=== PATIENT | male | born 1940 | race Caucasian/White ===

== ENCOUNTER 2020-08-23 17:50 | Inpatient (IN) | payer MEDICARE, BC, MEDICAID ==
[~2020-08-23] VITALS: Ht 185.4 cm; Wt 93.3 kg
[~2020-08-23 17:50] MED LIST: ALPR0.254 PO; ASPI-630 PO; ATORVASTATIN CA80 MG PO; CARV6.2511 PO; FURO20TA3 PO; LOSA25TA54 PO; RIVA20TA2 PO; SPIR25TA5 PO; TERA1CAP3 PO; TRAM50TA PO
[2020-08-23] MEDS ORDERED: DEXAMETHASONE SOD PHOS 20 MG/5 ML VIAL. IV ONE (18:15)
--- NOTE | 2020-08-23 18:45 | ED.ADGEN ---
Past Medical History Past Medical History: CAD, Cancer, CHF, High Cholesterol, Hypertension, [place], Other Additional Past Medical Histor: colon CA; sleep apnea Past Surgical History: Colectomy, Coronary Bypass Surgery, Pacemaker, Other Additional Past Surgical Histo: AICD; angioplasty; balloon pump Smoking Status: Former Smoker Alcohol Use: None Drug Use: None General Adult EDM: Chief Complaint: SHORTNESS OF BREATH HPI: HPI: Patient is a 79 year old male coming into nursing facility for hypoxia. On EMS arrival he was satting 77%. Placed on nonrebreather and sats improved to mid 90s. Patient has a history of CHF, COPD. Was tested for Covid and was +6 days ago. Patient has no complaints of pain or discomfort other than feeling he is short of breath. Patient is a DNR/DNI. Review of Systems: Review of Systems: Negative except for HPI Current Medications: Current Medications Medications (Trade) Dose Ordered Sig/Simone Start Time Stop Time Status Last Admin Dose Admin Acetaminophen (Tylenol) 650 mg PRN Q4HRS PRN 08/23/20 21:45 08/24/20 21:44 Albuterol/ Ipratropium (Duoneb) 3 ml RTQID 08/24/20 08:00 08/25/20 07:59 Azithromycin 250 ml @ 250 mls/hr 1X ONCE 08/23/20 22:00 08/23/20 22:59 08/23/20 22:50 250 MLS/HR Ceftriaxone Sodium (Rocephin) 1 gm 1X ONCE 08/23/20 22:00 08/23/20 22:01 DC 08/23/20 22:49 1 GM Dexamethasone Sodium Phosphate (Decadron) 10 mg 1X ONCE 08/23/20 18:15 08/23/20 18:30 DC 08/23/20 20:59 10 MG Fentanyl Citrate (Fentanyl 2ml Vial) 50 mcg PRN Q1HR PRN 08/23/20 21:45 08/24/20 21:44 Ondansetron HCl (Zofran) 4 mg PRN Q8HRS PRN 08/23/20 21:45 08/24/20 21:44 Sodium Chloride 1,000 ml @ 100 mls/hr Q10H 08/23/20 22:00 08/24/20 21:59 08/23/20 22:49 100 MLS/HR Allergies: Allergies: Allergies Coded Allergies Type Severity Reaction Last Updated Verified No Known Drug Allergies 09/16/17 No Physical Exam: PE: Constitutional: Well developed, well nourished, no acute distress, non-toxic appearance. [] HENT: Normocephalic, atraumatic, bilateral external ears normal, oropharynx moist, no oral exudates, nose normal. [] Eyes: PERRLA, EOMI, conjunctiva normal, no discharge. [] Neck: Normal range of motion, no tenderness, supple, no stridor. [] Cardiovascular:Heart rate regular rhythm, no murmur [] Lungs & Thorax: Bilateral coarse breath sounds, tachypnea Abdomen: Bowel sounds normal, soft, no tenderness, no masses, no pulsatile masses. [] Skin: Warm, dry, no erythema, no rash. [] Back: No tenderness, no CVA tenderness. [] Extremities: No tenderness, no cyanosis, no clubbing, ROM intact, no edema. [] Neurologic: Alert and oriented X 3, normal motor function, normal sensory function, no focal deficits noted. [] Psychologic: Affect normal, judgement normal, mood normal. [] Current Patient Data: Labs: Laboratory Tests Test 08/23/20 19:10 08/23/20 20:00 08/23/20 20:35 08/23/20 21:21 Influenza Type A Antigen Negative (NEGATIVE) Influenza Type B Antigen Negative (NEGATIVE) Urine Collection Type Unknown Urine Color Yellow Urine Clarity Clear Urine pH 5.5 (<5.0-8.0) Urine Specific [place] 1.015 (1.000-1.030) Urine Protein Negative mg/dL (NEG-TRACE) Urine Glucose (UA) Negative mg/dL (NEG) Urine Ketones (Stick) Negative mg/dL (NEG) Urine Blood Negative (NEG) Urine Nitrite Negative (NEG) Urine Bilirubin Negative (NEG) Urine Urobilinogen Dipstick 0.2 mg/dL (0.2 mg/dL) Urine Leukocyte Esterase Negative (NEG) Urine RBC 0 /HPF (0-2) Urine WBC 1-4 /HPF (0-4) Urine Squamous Epithelial Cells Few /LPF Urine Bacteria 0 /HPF (0-FEW) Urine Hyaline Casts Moderate /HPF Urine Mucus Slight /LPF White Blood Count 10.6 x10^3/uL (4.0-11.0) Red Blood Count 4.57 x10^6/uL (4.30-5.70) Hemoglobin 13.1 g/dL (13.0-17.5) Hematocrit 40.2 % (39.0-53.0) Mean Corpuscular Volume 88 fL (79-100) Mean Corpuscular Hemoglobin 29 pg (25-35) Mean Corpuscular Hemoglobin Concent 33 g/dL (31-37) Red Cell Distribution Width 15.7 % (11.5-14.5) H Platelet Count 91 x10^3/uL (140-400) L Neutrophils (%) (Auto) 88 % (31-73) H Lymphocytes (%) (Auto) 6 % (24-48) L Monocytes (%) (Auto) 7 % (0-9) Segmented Neutrophils % 72 % (35-66) H Band Neutrophils % 13 % (0-9) H Lymphocytes % 9 % (24-48) L Monocytes % 6 % (0-10) Platelet Estimate Decreased (ADEQUATE) Sodium Level 138 mmol/L (136-145) Potassium Level 5.6 mmol/L (3.5-5.1) H Chloride Level 102 mmol/L (98-107) Carbon Dioxide Level 30 mmol/L (21-32) Anion Gap 6 (6-14) Blood Urea Nitrogen 47 mg/dL (8-26) H Creatinine 2.4 mg/dL (0.7-1.3) H Estimated GFR (Cockcroft-Gault) 26.3 BUN/Creatinine Ratio 20 (6-20) Glucose Level 76 mg/dL (70-99) Calcium Level 8.4 mg/dL (8.5-10.1) L Magnesium Level 3.0 mg/dL (1.8-2.4) H Total Bilirubin 0.7 mg/dL (0.2-1.0) Aspartate Amino Transferase (AST) 179 U/L (15-37) H Alanine Aminotransferase (ALT) 152 U/L (16-63) H Alkaline Phosphatase 68 U/L (46-116) Troponin I Quantitative < 0.017 ng/mL (0.000-0.055) AS-Elv-X-Type Natriuretic Peptide 3004 pg/mL (0-449) H Total Protein 7.0 g/dL (6.4-8.2) Albumin 3.0 g/dL (3.4-5.0) L Albumin/Globulin Ratio 0.8 (1.0-1.7) L Prothrombin Time 20.5 SEC (11.7-14.0) H Prothrombin Time INR 1.8 (0.8-1.1) H D-Dimer (Lurdes) 1.13 ug/mlFEU (0.00-0.50) H Laboratory Tests 08/23/20 20:35 Laboratory Tests 08/23/20 20:35 Vital Signs: Vital Signs Date Time Temp Pulse Resp B/P (MAP) Pulse Ox O2 Delivery O2 Flow Rate FiO2 08/23/20 18:18 66 36 83/53 (63) 88 NonRebreather Mask 12.0 08/23/20 17:50 99.8 99.8 EKG: EKG: Paced rhythm, heart rate 65, left axis deviation, no ST elevation or depression, wide QRS [] Heart Score: Risk Factors: Risk Factors: DM, Current or recent (<one month) smoker, HTN, HLP, family history of CAD, obesity. Risk Scores: Score 0 - 3: 2.5% MACE over next 6 weeks - Discharge Home Score 4 - 6: 20.3% MACE over next 6 weeks - Admit for Clinical Observation Score 7 - 10: 72.7% MACE over next 6 weeks - Early Invasive Strategies Radiology/Procedures: Radiology/Procedures: EXAM: AP View of the chest DATE: 08/23/2020 6:13 PM INDICATION: Shortness of air. COVID + COMPARISON: 12/13/2015 FINDINGS: Cardiac generator pack obscures a portion of the left chest with leads in stable position.Heart is moderately enlarged. Aorta is tortuous. Patient's chin obscures the lung apex. Diffuse bilateral parenchymal opacities likely consolidative process such as pneumonia. Imaging follow-up to resolution recommended. Trace left pleural effusion. No pneumothorax. IMPRESSION: 1. Diffuse bilateral parenchymal opacities likely consolidative process such as pneumonia. Imaging follow-up to resolution recommended. 2. Trace left pleural effusion. [] Course & Med Decision Making: Course & Med Decision Making Pertinent Labs and Imaging studies reviewed. (See chart for details) Patient stable on 10 to 15 L nonrebreather, admit to his primary care physician for oxygen demand. Started on steroids and antibiotics Dragon Disclaimer: Dragon Disclaimer: This electronic medical record was generated, in whole or in part, using a voice recognition dictation system. Departure Departure Impression: Primary Impression: COVID-19 Additional Impression: Acute and chronic respiratory failure with hypoxia Disposition: 09 ADMITTED INPT THIS HOSP Condition: GUARDED Referrals: NA APARICIO MD (PCP) Problem Qualifiers DYANA MCDONALD MD Aug 23, 2020 18:45
--- NOTE | 2020-08-23 19:48 | RAD ---
EXAM: AP View of the chest DATE: 08/23/2020 6:13 PM INDICATION: Shortness of air. COVID + COMPARISON: 12/13/2015 FINDINGS: Cardiac generator pack obscures a portion of the left chest with leads in stable position.Heart is moderately enlarged. Aorta is tortuous. Patient's chin obscures the lung apex. Diffuse bilateral parenchymal opacities likely consolidative process such as pneumonia. Imaging follow-up to resolution recommended. Trace left pleural effusion. No pneumothorax. IMPRESSION: 1. Diffuse bilateral parenchymal opacities likely consolidative process such as pneumonia. Imaging follow-up to resolution recommended. 2. Trace left pleural effusion. Electronically signed by: Ashwin Hathaway MD (08/23/2020 7:44 PM) JAILENE
[2020-08-23 20:13] LABS: INFLUENZA A PATIENT NEGATIVE (NEGATIVE); INFLUENZA B PATIENT NEGATIVE (NEGATIVE)
[2020-08-23 20:19] LABS: BILIRUBIN,URINE NEGATIVE (NEG); CLARITY,URINE CLEAR; COLOR,URINE YELLOW; NITRITE,URINE NEGATIVE (NEG); PH,URINE 5.5 (<5.0-8.0); PROTEIN,URINE NEGATIVE (NEG-TRACE); UROBILINOGEN,URINE 0.2 mg/dL (0.2 mg/dL)
[2020-08-23 20:20] LABS: BACTERIA,URINE 0 /HPF (0-FEW); HYALINE CASTS, URINE MODERATE /HPF; RBC,URINE 0 /HPF (0-2)
[2020-08-23 20:50] LABS: HEMATOCRIT 40.2 % (39.0-53.0); HEMOGLOBIN 13.1 g/dL (13.0-17.5); MEAN CORPUSCULAR HEMOGLOBIN 29 pg (25-35); MEAN CORPUSCULAR HGB CONC 33 g/dL (31-37); MEAN CORPUSCULAR VOLUME 88 fL (79-100); PLATELET COUNT 91 x10^3/uL (140-400); RED BLOOD COUNT 4.57 x10^6/uL (4.30-5.70); RED CELL DISTRIBUTION WIDTH 15.7 % (11.5-14.5); WHITE BLOOD COUNT 10.6 x10^3/uL (4.0-11.0)
[2020-08-23 20:51] LABS: LYMPH % 6 % (24-48); MONO % 7 % (0-9); NEUT % 88 % (31-73)
[2020-08-23 21:13] LABS: ALBUMIN/GLOBULIN RATIO 0.8 (1.0-1.7); CALCIUM 8.4 mg/dL (8.5-10.1); CREATININE 2.4 mg/dL (0.7-1.3); GFR 26.3
[2020-08-23 21:14] LABS: POTASSIUM 5.6 mmol/L (3.5-5.1); TOTAL BILIRUBIN 0.7 mg/dL (0.2-1.0)
[2020-08-23 21:43] LABS: % BANDS 13 % (0-9); % LYMPHS 9 % (24-48); % MONOS 6 % (0-10); % SEGS 72 % (35-66); PLT ESTIMATE DECREASED (ADEQUATE)
[2020-08-23] MEDS ORDERED: fentaNYL PF VIAL 100 MCG/2 ML VIAL IV PRN (21:45)
[2020-08-23] MEDS ORDERED: ONDANSETRON PF 4 MG/2 ML VIAL. IV PRN (21:45)
[2020-08-23] MEDS ORDERED: ACETAMINOPHEN 325 MG TABLET. PO PRN (21:45)
[2020-08-23 21:47] LABS: D-DIMER 1.13 ug/mlFEU (0.00-0.50); PROTHROMBIN TIME PATIENT 20.5 SEC (11.7-14.0)
[2020-08-23] MEDS ORDERED: AZITHRMYCN 500MG IVPB FOR OMNI 250 ML IV ONE (22:00)
[2020-08-23] MEDS ORDERED: cefTRIAXone IV Push 1 GM VIAL. IVP ONE (22:00)
[2020-08-23] MEDS: IV NORMAL SALINE 1000ML BAG 1,000 ML IV SCH (22:49)
[2020-08-24] VITALS (7 sets, daily range): BP systolic 103–144; BP diastolic 52–79
--- NOTE | 2020-08-24 07:11 | EKG ---
[facility] [address] [place] [address] Test Date: 2020-08-23 Test Time: 18:19:09 Pat Name: DILLAN MORGAN Department: Room: Gender: M Housesmith: : 1940 Requested By: DYANA MCDONALD Order Number: [id number] Reading MD: Measurements Intervals [place] Rate: 65 P: -32 RI: 296 QRS: -59 QRSD: 150 T: 118 QT: 464 QTc: 483 Interpretive Statements SINUS RHYTHM PROLONGED RI INTERVAL ABNORMAL LEFT AXIS DEVIATION NON SPECIFIC INTRAVENTRICULAR BLOCK QRS(T) CONTOUR ABNORMALITY CONSIDER ANTEROSEPTAL MYOCARDIAL DAMAGE ABNORMAL ECG RI6.02 No previous ECG available for comparison
[2020-08-24] MEDS ORDERED: MAGN200T7 PO (07:48)
[2020-08-24] MEDS ORDERED: ATOR40TA PO (07:48)
[2020-08-24] MEDS ORDERED: ISOS20TA2 PO (07:48)
[2020-08-24] MEDS ORDERED: POTA-163 PO (07:48)
[2020-08-24] MEDS ORDERED: FLUO20CA20 PO (07:48)
[2020-08-24] MEDS ORDERED: APIX5TAB PO (07:48)
[2020-08-24] MEDS ORDERED: MULT-766 PO (07:48)
[2020-08-24] MEDS ORDERED: GABA100C6 PO (07:48)
[2020-08-24] MEDS ORDERED: ACET325T9 PO (07:48)
[2020-08-24] MEDS ORDERED: GLIM2TAB PO (07:48)
[2020-08-24] MEDS ORDERED: SPIR25TA5 PO (07:48)
[2020-08-24] MEDS ORDERED: AZIT500T4 PO (07:48)
[2020-08-24] MEDS ORDERED: MAGN400O7 PO (07:48)
[2020-08-24] MEDS ORDERED: MECL12.574 PO (07:48)
[2020-08-24] MEDS ORDERED: AMIO200T6 PO (07:48)
[2020-08-24] MEDS ORDERED: LORA10TA3 PO (07:48)
[2020-08-24] MEDS ORDERED: DIGO125T3 PO (07:48)
[2020-08-24] MEDS ORDERED: TERA1CAP3 PO (07:48)
[2020-08-24] MEDS ORDERED: ALBU2.5V8 IH (07:48)
[2020-08-24] MEDS ORDERED: GUAI600T47 PO (07:48)
[2020-08-24] MEDS ORDERED: SENN1TAB62 PO (07:48)
[2020-08-24] MEDS ORDERED: IPRATRPIUM/ALBUTEROL 0.5/2.5MG 3 ML NEBU. NEB SCH (08:00)
[2020-08-24] MEDS: IV NORMAL SALINE 1000ML BAG 1,000 ML IV SCH ×2 (08:00→18:00)
[2020-08-24 08:50] LABS: BASO % 0 % (0-3); EOS % 0 % (0-3); HEMATOCRIT 38.8 % (39.0-53.0); HEMOGLOBIN 12.8 g/dL (13.0-17.5); LYMPH # 0.4 x10^3/uL (1.0-4.8); LYMPH % 4 % (24-48); MEAN CORPUSCULAR HEMOGLOBIN 29 pg (25-35); MEAN CORPUSCULAR HGB CONC 33 g/dL (31-37); MEAN CORPUSCULAR VOLUME 87 fL (79-100); MONO # 0.5 x10^3/uL (0.0-1.1); MONO % 6 % (0-9); NEUT # 8.5 x10^3/uL (1.8-7.7); NEUT % 90 % (31-73); PLATELET COUNT 99 x10^3/uL (140-400); RED BLOOD COUNT 4.45 x10^6/uL (4.30-5.70); RED CELL DISTRIBUTION WIDTH 15.3 % (11.5-14.5); WHITE BLOOD COUNT 9.5 x10^3/uL (4.0-11.0)
[2020-08-24 09:07] LABS: ALBUMIN 2.5 g/dL (3.4-5.0); ALBUMIN/GLOBULIN RATIO 0.7 (1.0-1.7); CALCIUM 8.5 mg/dL (8.5-10.1); CREATININE 1.7 mg/dL (0.7-1.3); GFR 39.2; TOTAL BILIRUBIN 0.4 mg/dL (0.2-1.0); TOTAL PROTEIN 6.1 g/dL (6.4-8.2)
[2020-08-24] MEDS ORDERED: POTA10TA12 PO (12:13)
[2020-08-24] MEDS ORDERED: ACETAMINOPHEN 325 MG TABLET. PO PRN (12:15)
[2020-08-24] MEDS ORDERED: MAGNESIUM HYDROXIDE 2,400 MG/30 ML ORAL.SUSP. PO PRN (12:15)
[2020-08-24] MEDS ORDERED: POTA20TA4 PO (12:55)
[2020-08-24] MEDS: GLIMEPIRIDE 2 MG TABLET. PO SCH ×2 (13:00→14:43)
[2020-08-24] MEDS ORDERED: ALBUTEROL SULFATE 2.5 MG/3 ML NEBU. INH PRN (13:00)
[2020-08-24] MEDS ORDERED: ALBUTEROL SULFATE 8GM INHALER. INH PRN ×2 (14:00)
[2020-08-24] MEDS: ASPIRIN CHEWABLE 81 MG TABLET. PO SCH (14:40)
[2020-08-24] MEDS: ALPRAZolam 0.25 MG TABLET PO PRN ×2 (14:40→21:04)
[2020-08-24] MEDS: DIGOXIN 125 MCG TABLET. PO SCH (14:40)
[2020-08-24] MEDS: ISOSORBIDE MONONITRATE ER 30 MG TAB.ER.24H PO SCH (14:41)
[2020-08-24] MEDS: MAGNESIUM OXIDE 400 MG TABLET PO SCH ×2 (14:42→21:05)
[2020-08-24] MEDS: LOSARTAN POTASSIUM 25 MG TABLET. PO SCH ×2 (14:42→16:45)
[2020-08-24] MEDS: FLUoxetine HCL 20 MG CAPSULE PO SCH (14:42)
[2020-08-24] MEDS: SPIRONOLACTONE 25 MG TABLET PO SCH (14:42)
[2020-08-24] MEDS: AMIODARONE HCL 200 MG TABLET. PO SCH (14:42)
[2020-08-24] MEDS: MULTIVITAMIN with MINERAL TABLET. PO SCH (14:43)
[2020-08-24] MEDS: APIXABAN 5 MG TABLET. PO SCH ×2 (14:43→21:26)
[2020-08-24] MEDS: GABAPENTIN 100 MG CAPSULE. PO SCH (14:43)
[2020-08-24] MEDS: MECLIZINE HCL 12.5 MG TABLET. PO SCH ×2 (14:43→21:05)
[2020-08-24] MEDS: FUROSEMIDE 80 MG TABLET. PO SCH ×2 (14:43→16:45)
[2020-08-24] MEDS: DEXAMETHASONE SOD PHOS 4 MG/ML VIAL IVP SCH (14:44)
[2020-08-24] MEDS ORDERED: DEXTROSE 50% 25 GM / 50ML DISP.SYRIN. IV ONE ×2 (14:51→15:00)
--- NOTE | 2020-08-24 16:00 | NUR ---
SS following for discharge planning. SS reviewed pt chart and discussed with pt RN. Pt is resident from [facility], ; fax [phone]. COVID19 positive. Pt is currently on non-rebreather mask. Not stable. SS will continue to follow for discharge planning.
[2020-08-24] MEDS: CARVEDILOL 6.25 MG TABLET. PO SCH (17:00)
[2020-08-24] MEDS ORDERED: DEXTROSE 50% 25 GM / 50ML DISP.SYRIN. IV PRN (17:30)
--- NOTE | 2020-08-24 20:52 | HP ---
ADMIT DATE: CHIEF COMPLAINT AND HISTORY OF PRESENT ILLNESS: This 79-year-old white male well known to me from followup over the years at [facility]. The patient became ill 2-3 days ago. He was tested positive for COVID, has been isolated. He has had cough and shortness of breath but had progressive hypoxemia on the afternoon and on evening of admission, he was sent to the Emergency Room where he was admitted for acute hypoxic respiratory failure due to COVID-19 with findings of bilateral pulmonary infiltrates consistent with viral pneumonia on chest x-ray. PAST MEDICAL HISTORY: Remarkable for coronary artery disease, skin cancers, heart failure, hyperlipidemia, hypertension and prior NE. He has had prior colon cancer and sleep apnea. PAST SURGICAL HISTORY: Remarkable for partial colectomy, CABG, pacemaker, AICD placement and angioplasty. MEDICATIONS: Brought with the patient, listed on the computer and have been addressed. ALLERGIES: He has no known drug allergies. SOCIAL HISTORY: Former smoker, nondrinker, does not use drugs. , lives at the care home with his . FAMILY HISTORY: Noncontributory. REVIEW OF SYSTEMS: As mentioned is remarkable for cough and shortness of breath. No appetite. He denies chest pain. He denies hemoptysis, nausea, vomiting or diarrhea. PHYSICAL EXAMINATION: GENERAL: He is a well-developed, well-nourished white male, who appears short of breath. He is on a nonrebreather mask at 15 L per nasal cannula. HEAD, EYES, EARS, NOSE AND THROAT: Unremarkable. NECK: Supple. No thyromegaly. CHEST: Reveals coarse breath sounds bilaterally, is somewhat tachypneic with a respiratory rate of 20. HEART: Regular rate and rhythm without S3, S4 or murmur. ABDOMEN: Soft, nontender, without hepatosplenomegaly or masses. EXTREMITIES: Without cyanosis, clubbing or edema. NEUROLOGIC: He is intact. Imaging shows again the bilateral pneumonia. Laboratory [place], he is influenza negative, A and B. Initial chemistry panel shows acute kidney injury with BUN of 47, creatinine 2.4 and hyperkalemia. He also has a transaminitis with an AST of 179 and ALT of 152. His BNP is elevated at 3004. LABORATORY DATA: White blood count is 10,600 with a left shift. He does have 13% bands on his differential. IMPRESSION: 1. COVID-19 pneumonia with acute hypoxic respiratory failure. 2. Acute kidney injury. 3. Transaminitis. 4. Atherosclerotic heart disease and history of congestive heart failure. PLAN: The patient has been admitted. Supportive care will be done and Pulmonary and ID will be consulted and the patient will be monitored, managed and treated appropriately. NA APARICIO MD DR: MAURICIO/claudia JOB#: [id number] / [id number]
[2020-08-24] MEDS ORDERED: cefTRIAXone IV Push 1 GM VIAL. IVP SCH (21:00)
[2020-08-24] MEDS: TERAZOSIN 1 MG CAPSULE. PO SCH (21:05)
[2020-08-24] MEDS: ATORVASTATIN CALCIUM 40 MG TABLET. PO SCH (21:05)
[2020-08-24] MEDS: LACTOBACILLUS RHAMNOSUS GG 1 CAPSULE. PO SCH (21:05)
[2020-08-24] MEDS: AZITHROMYCIN 500 MG in IV NORMAL SALINE 250ML 250 ML IV SCH (22:52)
[2020-08-24] MEDS ORDERED: ALPRAZolam 0.5 MG TABLET PO PRN (23:00)
[2020-08-25] MEDS: cefTRIAXone IV Push 1 GM VIAL. IVP SCH ×2 (00:22→22:44)
[2020-08-25 02:35] VITALS: BP 100/50
[2020-08-25] MEDS: MORPHINE SULFATE 2 MG/ML VIAL. IV PRN ×2 (04:33→22:59)
--- NOTE | 2020-08-25 05:00 | NUR ---
LATE ENTRY: After several attempts to use urinal and pt exclaiming "I need to pee!" with agitation, patient was bladder scanned revealing 720 cc urine in bladder. Order for Rey catheter placement obtained from Dr. Justin and 16F rey catheter inserted under under sterile technique, clear yellow urine returned and 650cc urine emptied. Pt tolerated procedure well and became more relaxed.
[2020-08-25 07:00] VITALS: BP 102/61
[2020-08-25] MEDS: CARVEDILOL 6.25 MG TABLET. PO SCH ×2 (08:00→15:33)
[2020-08-25] MEDS: CETIRIZINE HCL 10 MG TABLET. PO SCH (09:00)
[2020-08-25] MEDS: FUROSEMIDE 80 MG TABLET. PO SCH (09:00)
[2020-08-25] MEDS: SENNOSIDES/DOCUSATE 8.6/50MG TABLET. PO SCH (09:00)
[2020-08-25] MEDS: LACTOBACILLUS RHAMNOSUS GG 1 CAPSULE. PO SCH ×2 (09:00→21:00)
[2020-08-25] MEDS: FLUoxetine HCL 20 MG CAPSULE PO SCH (09:00)
[2020-08-25] MEDS: SPIRONOLACTONE 25 MG TABLET PO SCH (09:00)
[2020-08-25] MEDS: ASPIRIN CHEWABLE 81 MG TABLET. PO SCH (09:00)
[2020-08-25] MEDS: LOSARTAN POTASSIUM 25 MG TABLET. PO SCH (09:00)
[2020-08-25] MEDS: MULTIVITAMIN with MINERAL TABLET. PO SCH (09:00)
[2020-08-25] MEDS: GABAPENTIN 100 MG CAPSULE. PO SCH (09:00)
[2020-08-25] MEDS: ISOSORBIDE MONONITRATE ER 30 MG TAB.ER.24H PO SCH (09:00)
[2020-08-25] MEDS: POTASSIUM CHLORIDE 20 MEQ TABLET.ER. PO SCH (09:00)
[2020-08-25] MEDS: AMIODARONE HCL 200 MG TABLET. PO SCH (09:00)
[2020-08-25] MEDS: MECLIZINE HCL 12.5 MG TABLET. PO SCH ×3 (09:00→21:00)
[2020-08-25] MEDS: MAGNESIUM OXIDE 400 MG TABLET PO SCH ×3 (09:00→21:00)
[2020-08-25] MEDS ORDERED: AZITHRMYCN 500MG IVPB FOR OMNI 250 ML IV SCH (09:00)
[2020-08-25] MEDS: APIXABAN 5 MG TABLET. PO SCH ×2 (09:00→21:00)
[2020-08-25] MEDS: DIGOXIN 125 MCG TABLET. PO SCH (09:00)
--- NOTE | 2020-08-25 09:13 | CONS ---
DATE OF CONSULTATION: PULMONARY CONSULTATION ATTENDING PHYSICIAN: Dr. Bermeo REASON FOR CONSULTATION: Respiratory failure. HISTORY OF PRESENT ILLNESS: The patient is a 79-year-old male who lives at [facility]. He has history of coronary artery disease, hypertension, COPD and mild pulmonary fibrosis. He was brought into the hospital with hypoxia. He was tested positive for COVID. I was asked to see him as his oxygen requirement has been worsen. He was on a nonrebreather mask, requiring 100% oxygen. Saturations were in the 70s. I just placed him on BiPAP. He is a DNR. His chest x-ray revealed bilateral infiltrates. Consultation requested for further evaluation and management. PAST MEDICAL HISTORY: Remarkable for coronary artery disease, history of COPD, history of mild pulmonary fibrosis based on prior CT chest, history of hypertension, hyperlipidemia. PAST SURGICAL HISTORY: Partial colectomy, CABG, pacemaker, AICD and angioplasty. MEDICATIONS: Reviewed as listed in the MRAD including antibiotics and dexamethasone. REVIEW OF SYSTEMS: Unable to obtain from the patient. SOCIAL HISTORY: Has prior history of tobacco use. PHYSICAL EXAMINATION: VITAL SIGNS: He is on 100% FiO2 on BiPAP. Afebrile, pulse ox is in the high 80s now. NECK: Supple. LUNGS: Diminished breath sounds. CARDIOVASCULAR: Regular rate. ABDOMEN: Soft. EXTREMITIES: With trace pitting edema. LABORATORY DATA: Reviewed. White cell count 9.5, hemoglobin 12.8 and platelets are 99. BUN and creatinine is 49 and 1.7. Glucose was 32. IMPRESSION: 1. Acute hypoxic respiratory failure secondary to multifactorial etiologies including combination of COVID-19 pneumonia, underlying chronic obstructive pulmonary disease and mild fibrosis, predominantly upper lobes as seen on the previous CT chest. 2. Acute kidney injury. 3. Moderate protein-calorie malnutrition. 4. Chronic anticoagulation. RECOMMENDATIONS: 1. Discussed with RN and RT. We will continue on BiPAP at 100% FiO2. 2. The patient is a DNR. The patient shows intolerance to BiPAP, then we will approach the family and consider palliative care. 3. Continue IV steroids. 4. Continue empiric antibiotics. 5. Follow renal function. 6. Continue dexamethasone. 7. Prognosis is grim. We will follow along with you. Discussed with RN. RE ROSSI MD DR: ELIJAH/claudia JOB#: [id number] / [id number]
--- NOTE | 2020-08-25 09:22 | PDOC ---
Infectious Disease Note Vital Sign Vital Signs Vital Signs Date Time Temp Pulse Resp B/P (MAP) Pulse Ox O2 Delivery O2 Flow Rate FiO2 08/25/20 05:10 20 83 NonRebreather Mask 15.0 08/25/20 02:35 98.4 74 100/50 (67) 98.4 Labs Lab Laboratory Tests Test 08/24/20 14:50 08/24/20 15:13 08/24/20 16:41 08/24/20 20:28 Glucose (Fingerstick) 32 mg/dL (70-99) 99 mg/dL (70-99) 101 mg/dL (70-99) 164 mg/dL (70-99) Test 08/25/20 03:12 08/25/20 08:06 Glucose (Fingerstick) 232 mg/dL (70-99) 259 mg/dL (70-99) Objective Assessment pt seen, consult dictated Plan Plan of Care / ROYCE FRITZ MD Aug 25, 2020 09:22
--- NOTE | 2020-08-25 09:42 | CONS ---
DATE OF CONSULTATION: REQUESTING PHYSICIAN: Dr. Qamar Justin. REASON FOR CONSULTATION: COVID-19 positive. Respiratory failure. HISTORY OF PRESENT ILLNESS: This is a 79-year-old gentleman who is from senior care who came in with COVID positive. The patient is significantly hypoxic and actually lethargic/somnolent and the patient is DNR. The patient does have bilateral pulmonary infiltrate. The patient is not able to provide any information. Information was obtained through chart review and discussing with the patient's nurse. No nausea, vomiting, diarrhea noted. There is no fever noted. PAST MEDICAL HISTORY: Positive for COPD, pulmonary fibrosis, hypertension, hyperlipidemia. He has had coronary artery bypass grafting, pacemaker/AICD in place, and colectomy done. SOCIAL HISTORY: Negative for smoking, alcohol or illicit drug use. The patient is a senior care resident. REVIEW OF SYSTEMS: Unable to obtain other than what I mentioned in the HPI through the RN. CURRENT MEDICATIONS: Reviewed. The patient is on azithromycin, ceftriaxone. PHYSICAL EXAMINATION: GENERAL: Arousable barely gentleman, somnolent on a BiPAP, not in distress. VITAL SIGNS: Stable, afebrile. HEENT: NAD. NECK: Supple, no JVP, no lymphadenopathy. LUNGS: Clear. HEART: S1, S2 regular. ABDOMEN: Soft, nontender, no organomegaly. EXTREMITIES: No edema, cyanosis. SKIN: Unremarkable. NEUROLOGIC: The patient is not able to assess. LABORATORY DATA: White count is 9.5. BUN and creatinine is 49 and 1.7. Urinalysis unremarkable. Chest x-ray showed diffuse bilateral opacity. IMPRESSION: 1. COVID-19 positive. 2. Hypoxic respiratory failure. 3. Pulmonary infiltrate. RECOMMENDATIONS: Recommend supportive care. The patient's overall prognosis is poor and the patient probably should be in hospice. Thank you very much, Dr. Justin, for giving me the opportunity to participate in this patient's care. ROYCE FRITZ MD DR: DRAKE/claudia JOB#: [id number] / [id number]
[2020-08-25 10:57] VITALS: BP 105/54
[2020-08-25] MEDS: DEXAMETHASONE SOD PHOS 4 MG/ML VIAL IVP SCH (11:29)
--- NOTE | 2020-08-25 12:30 | NUR ---
SS following up with discharge planning. SS reviewed pt chart and discussed with pt RN. Pt is currently on the BIPAP at 100%. Not stable. Pt's sister in law, Yohana, and pt's friend and reported DPOA, Rip, , agreeable to comfort care. SS phoned and faxed referral to [facility], ; fax [phone]. SS will continue to follow for discharge planning.
--- NOTE | 2020-08-25 12:33 | NUR ---
Nursing: Patient restless, yelling out "I cant breathe", put leg over the side rail, took bipap off. Patient disoriented. PRN Ativan given. Patient calm. Bipap on, oxygen currently 85%
[2020-08-25 15:00] VITALS: BP 106/51
--- NOTE | 2020-08-25 19:10 | NUR ---
Pt restless yelling out with bipap on, assessment completed vss will resume care and continue to monitor pt.
[2020-08-25 19:12] VITALS: BP 125/56
[2020-08-25] MEDS: TERAZOSIN 1 MG CAPSULE. PO SCH (21:00)
[2020-08-25] MEDS: ATORVASTATIN CALCIUM 40 MG TABLET. PO SCH (21:00)
[2020-08-25 22:33] VITALS: BP 153/67
[2020-08-25] MEDS: AZITHROMYCIN 500 MG in IV NORMAL SALINE 250ML 250 ML IV SCH (22:46)
--- NOTE | 2020-08-26 01:49 | PN ---
DATE: 08/25/2020 LOCATION: He is in room 254. SUBJECTIVE: This 79-year-old white male, remains hospitalized with COVID-19 pneumonia and respiratory failure. He has actually worsened somewhat over the last 24 hours with increasing oxygenation needs and is currently on 100% BiPAP. He has a DNR and a POA, who wants to go more of a palliative route and hospice is scheduled to see him later on this afternoon. OBJECTIVE: VITAL SIGNS: Stable. He is afebrile. He is satting in lower 90s with 100% BiPAP. He is currently somnolent and does not respond to me for any kind of voice or otherwise during the exam. CHEST: Reveals somewhat bilateral crackling. HEART: Regular. ABDOMEN: Benign. EXTREMITIES: Without cyanosis, clubbing, or edema. LABORATORY DATA: Blood sugars are higher today, but his Amaryl was on hold for hypoglycemia yesterday, likely related to poor p.o. intake and acute kidney injury had on admission. IMPRESSION: 1. COVID-19 pneumonia with respiratory failure and grim prognosis. 2. Encephalopathy. 3. Acute kidney injury. 4. History of cardiovascular disease with myocardial infarction, congestive heart failure, pacemaker and automatic implantable cardioverter defibrillator. PLAN: Continue supportive care. We will see where hospice takes us as I see him this evening. I agree with Pulmonary and ID that prognosis is grim. He is very sad as his just from COVID 2 doors down yesterday afternoon. NA APARICIO MD DR: MAURICIO/claudia JOB#: [id number] / [id number]
[2020-08-26 02:01] VITALS: BP 125/78
[2020-08-26] MEDS: MORPHINE SULFATE 2 MG/ML VIAL. IV PRN ×3 (03:11→13:09)
[2020-08-26 07:00] VITALS: BP 127/60
[2020-08-26] MEDS: CARVEDILOL 6.25 MG TABLET. PO SCH (08:00)
--- NOTE | 2020-08-26 08:33 | PDOC ---
Infectious Disease Note Subjective Subjective Patient is lethargic and hypoxic Vital Sign Vital Signs Vital Signs Date Time Temp Pulse Resp B/P (MAP) Pulse Ox O2 Delivery O2 Flow Rate FiO2 08/26/20 07:33 BiPAP/CPAP 08/26/20 07:00 99.1 86 34 127/60 (82) 69 99.1 08/26/20 03:11 2.0 Physical Exam PHYSICAL EXAM GENERAL: Arousable barely gentleman, somnolent on a BiPAP, not in distress. VITAL SIGNS: Stable, afebrile. HEENT: NAD. NECK: Supple, no JVP, no lymphadenopathy. LUNGS: Clear. HEART: S1, S2 regular. ABDOMEN: Soft, nontender, no organomegaly. EXTREMITIES: No edema, cyanosis. SKIN: Unremarkable. NEUROLOGIC: The patient is not able to assess. Labs Lab Laboratory Tests Test 08/25/20 11:32 08/25/20 20:00 08/26/20 07:52 Glucose (Fingerstick) 283 mg/dL (70-99) 343 mg/dL (70-99) 281 mg/dL (70-99) Objective Assessment IMPRESSION: 1. COVID-19 positive. 2. Hypoxic respiratory failure. 3. Pulmonary infiltrate. Plan Plan of Care Patient is going towards hospice ROYCE FRITZ MD Aug 26, 2020 08:33
[2020-08-26] MEDS: DEXAMETHASONE SOD PHOS 4 MG/ML VIAL IVP SCH (08:50)
[2020-08-26] MEDS: ASPIRIN CHEWABLE 81 MG TABLET. PO SCH (09:00)
[2020-08-26] MEDS: CETIRIZINE HCL 10 MG TABLET. PO SCH (09:00)
[2020-08-26] MEDS: APIXABAN 5 MG TABLET. PO SCH (09:00)
[2020-08-26] MEDS: MAGNESIUM OXIDE 400 MG TABLET PO SCH (09:00)
[2020-08-26] MEDS: ISOSORBIDE MONONITRATE ER 30 MG TAB.ER.24H PO SCH (09:00)
[2020-08-26] MEDS: SENNOSIDES/DOCUSATE 8.6/50MG TABLET. PO SCH (09:00)
[2020-08-26] MEDS: AMIODARONE HCL 200 MG TABLET. PO SCH (09:00)
[2020-08-26] MEDS: LACTOBACILLUS RHAMNOSUS GG 1 CAPSULE. PO SCH (09:00)
[2020-08-26] MEDS: FLUoxetine HCL 20 MG CAPSULE PO SCH (09:00)
[2020-08-26] MEDS: MULTIVITAMIN with MINERAL TABLET. PO SCH (09:00)
[2020-08-26] MEDS: MECLIZINE HCL 12.5 MG TABLET. PO SCH (09:00)
[2020-08-26] MEDS: LOSARTAN POTASSIUM 25 MG TABLET. PO SCH (09:00)
[2020-08-26] MEDS: FUROSEMIDE 80 MG TABLET. PO SCH (09:00)
[2020-08-26] MEDS: SPIRONOLACTONE 25 MG TABLET PO SCH (09:00)
[2020-08-26] MEDS: DIGOXIN 125 MCG TABLET. PO SCH (09:00)
[2020-08-26] MEDS: POTASSIUM CHLORIDE 20 MEQ TABLET.ER. PO SCH (09:00)
[2020-08-26] MEDS: GABAPENTIN 100 MG CAPSULE. PO SCH (09:00)
--- NOTE | 2020-08-26 09:02 | PDOC ---
PULMONARY PROGRESS NOTES DATE: 08/26/20 TIME: 08:58 Subjective unresponsive on BIPAP no other concerns Awaiting in patient hospice Vitals Vital Signs Date Time Temp Pulse Resp B/P (MAP) Pulse Ox O2 Delivery O2 Flow Rate FiO2 08/26/20 08:52 69 Room Air 2.0 08/26/20 07:00 99.1 86 34 127/60 (82) 99.1 ROS: No Nausea, No Chest Pain, No Abdominal Pain, No Increase Cough General: Lethargic Cardiovascular: S1, S2 Extremities: Other (BLE +1 ) Labs Laboratory Tests Test 08/24/20 14:50 08/24/20 15:13 08/24/20 16:41 08/24/20 20:28 Glucose (Fingerstick) 32 mg/dL (70-99) 99 mg/dL (70-99) 101 mg/dL (70-99) 164 mg/dL (70-99) Test 08/25/20 03:12 08/25/20 08:06 08/25/20 11:32 08/25/20 20:00 Glucose (Fingerstick) 232 mg/dL (70-99) 259 mg/dL (70-99) 283 mg/dL (70-99) 343 mg/dL (70-99) Test 08/26/20 07:52 Glucose (Fingerstick) 281 mg/dL (70-99) Laboratory Tests Test 08/25/20 11:32 08/25/20 20:00 08/26/20 07:52 Glucose (Fingerstick) 283 mg/dL (70-99) 343 mg/dL (70-99) 281 mg/dL (70-99) Medications Active Scripts Medications Dose Route/Sig Max Daily Dose Days Date Category Potassium Chloride (Potassium Chloride) 20 Meq Tablet.er 40 Meq PO DAILY 08/24/20 Reported Klor-Con 10 (Potassium Chloride) 10 Meq Tablet.er 1 Tab PO DAILY 30 08/24/20 Reported Terazosin Hcl 1 Mg Capsule 1 Mg PO HS 08/24/20 Reported Spironolactone 25 Mg Tablet 25 Mg PO DAILY 08/24/20 Reported Senna Plus Tablet (Sennosides/Docusate Sodium) 1 Each Tablet 1 Tab PO DAILY 20 08/24/20 Reported Proair Hfa Inhaler (Albuterol Sulfate) 8.5 Gm Hfa.aer.ad 2 Puff IH PRN Q4-6HRS PRN 21 08/24/20 Reported Multivitamin 1 Each Tablet 1 Each PO DAILY 08/24/20 Reported Mucinex (Guaifenesin) 600 Mg Tablet.er 1 Tab PO BID 10 08/24/20 Reported Milk Of Magnesia (Magnesium Hydroxide) 400 Mg/5 Ml Oral.susp 400 Mg PO PRN DAILY PRN 08/24/20 Reported Meclizine Hcl 12.5 Mg Tablet 1 Tab PO TID 08/24/20 Reported Mag-Oxide (Magnesium Oxide) 200 Mg Tablet 400 Mg PO TID 08/24/20 Reported Loratadine 10 Mg Tablet 1 Tab PO DAILY 08/24/20 Reported Lipitor (Atorvastatin Calcium) 40 Mg Tablet 40 Mg PO HS 08/24/20 Reported Isosorbide Mononitrate 20 Mg Tablet 15 Mg PO DAILY 08/24/20 Reported Gabapentin 100 Mg Capsule 100 Mg PO DAILY 08/24/20 Reported Fluoxetine Hcl 20 Mg Capsule 20 Mg PO DAILY 08/24/20 Reported Eliquis (Apixaban) 5 Mg Tablet 5 Mg PO BID 08/24/20 Reported Digoxin 125 Mcg Tablet 125 Mcg PO DAILY 08/24/20 Reported Azithromycin Tablet (Azithromycin) 500 Mg Tablet 1 Tab PO DAILY 5 08/24/20 Reported Amiodarone Hcl 200 Mg Tablet 1 Tab PO DAILY 08/24/20 Reported Amaryl (Glimepiride) 2 Mg Tablet 2 Mg PO DAILY 08/24/20 Reported Tylenol (Acetaminophen) 325 Mg Tablet 650 Mg PO PRN Q6HRS PRN 08/24/20 Reported Aspirin 81 Mg Tab.chew 81 Mg PO DAILY 09/01/14 Reported Alprazolam 0.25 Mg Tablet 0.25 Mg PO PRN Q6HRS PRN 09/01/14 Reported Furosemide 20 Mg Tablet 80 Mg PO DAILY 09/01/14 Reported Losartan Potassium (Losartan Potassium) 25 Mg Tablet 25 Mg PO DAILY 09/01/14 Reported Carvedilol (Carvedilol) 6.25 Mg Tablet 6.25 Mg PO BIDWMEALS 09/01/14 Reported Tramadol Hcl 50 Mg Tablet 50 Mg PO Q6H PRN 09/01/14 Reported Comments CXR IMPRESSION: 1. Diffuse bilateral parenchymal opacities likely consolidative process such as pneumonia. Imaging follow-up to resolution recommended. 2. Trace left pleural effusion. Impression . IMPRESSION: 1. Acute hypoxic respiratory failure secondary to multifactorial etiologies including combination of COVID-19 pneumonia, underlying chronic obstructive pulmonary disease and mild fibrosis, predominantly upper lobes as seen on the previous CT chest. 2. Acute kidney injury. 3. Moderate protein-calorie malnutrition. 4. Chronic anticoagulation. Plan . RECOMMENDATIONS: Continue BIPAP at 100%, untill can transition to inpatient hospice Spoke with son yesterday, pt. is DNR and will proceed with inpatient hospice with [facility] Continue steroids Continue ABX DVT/GI PPX Will D/C all treatment and transition to [facility] inpatient hospice today Discussed with RN and RT. RE ROSSI MD Aug 26, 2020 09:02
--- NOTE | 2020-08-26 10:45 | NUR ---
SS following up with discharge planning. SS reviewed pt chart and discussed with pt RN. Pt is currently on BIPAP at 100%. COVID19 positive. Pt on IV Azithromycin and IV Rocephin. Referral was sent to [facility] for inpatient hospice evaluation on 08/25/2020. [facility] currently awaiting to receive signed consents from pt's DPOA and will then admit pt. SS will continue to follow for discharge planning.
[2020-08-26 11:00] VITALS: BP 126/60
--- NOTE | 2020-08-26 11:31 | PN ---
DATE: 08/26/2020 LOCATION: He is in room 254. SUBJECTIVE: The patient has become progressively less responsive. He is agitated and restless at times. He is getting Ativan and morphine regular to try to control this. His oxygenation has gotten progressively worse over the last 24 hours with satting in the upper 60s to low 70s with 100% BiPAP. Hospice has been consulted and will be seeing him apparently today, although it was initially planned for yesterday. His power of erisa attorney wants to go for palliative hospice route as opposed to pursuing more aggressive care. OBJECTIVE: VITAL SIGNS: Stable. He is afebrile. Again, sats are in the upper 60s-70s, on 100% BiPAP. GENERAL: The patient is nonresponsive to stimuli. Exam was otherwise stable. LABORATORY DATA: Reveals elevated blood sugars after holding his Amaryl with hypoglycemia, but this is at least of concerns today. IMPRESSION: 1. COVID-19 pneumonia with respiratory failure and grim prognosis. 2. Encephalopathy. 3. Acute kidney injury. 4. History of cardiovascular disease. PLAN: Await hospice with palliative route to follow. I expect that the patient will not make it through the day. NA APARICIO MD DR: MAURICIO/claudia JOB#: [id number] / [id number]
[2020-08-26 15:00] VITALS: BP 126/60
== END 2020-08-26 15:56 | disposition hospice, inpatient (51) | DRG 177 ==
LOC: ER 17:50 → 2 SOUTH 21:32
PROVIDERS: ADMIT Family Medicine; ATTEND Family Medicine
PROC: 5A09357 Assistance with Respiratory Ventilation, Less than 24 Consecutive Hours, Continuous Positive Airway Pressure (ICD-10-PCS; principal; 2020-08-25)
PROC: 5A09357 Assistance with Respiratory Ventilation, Less than 24 Consecutive Hours, Continuous Positive Airway Pressure (ICD-10-PCS; 2020-08-26)
DX: U07.1 COVID-19 (principal); J96.21 Acute and chronic respiratory failure with hypoxia; J12.89 Other viral pneumonia; E44.0 Moderate protein-calorie malnutrition; G93.40 Encephalopathy, unspecified; J44.0 Chronic obstructive pulmonary disease with (acute) lower respiratory infection; N17.9 Acute kidney failure, unspecified; E78.00 Pure hypercholesterolemia, unspecified; E78.5 Hyperlipidemia, unspecified; I11.0 Hypertensive heart disease with heart failure; I25.10 Atherosclerotic heart disease of native coronary artery without angina pectoris; I25.2 Old myocardial infarction; I50.9 Heart failure, unspecified; J84.10 Pulmonary fibrosis, unspecified; Z66 Do not resuscitate; Z79.01 Long term (current) use of anticoagulants; Z85.038 Personal history of other malignant neoplasm of large intestine; Z85.828 Personal history of other malignant neoplasm of skin; Z87.891 Personal history of nicotine dependence; Z95.1 Presence of aortocoronary bypass graft; Z95.810 Presence of automatic (implantable) cardiac defibrillator; R74.01 Elevation of levels of liver transaminase levels
CPT/HCPCS: 36415; 71045; 80053; 81001; 82962; 83735; 83880; 84484; 85007; 85025; 85379; 85610; 87804; 93005; 94660; 96365; 96375; J0456; J0696; J1100; J2060; J2270; J7030; J7050; 99285-25; G0378; J8597

== ENCOUNTER 2020-08-26 16:07 | Inpatient (IN) | payer OTHER ==
[2020-08-26 15:00] VITALS: BP 126/60
[~2020-08-26 16:07] MED LIST changes: +ACET325T9 PO; +ALBU2.5V8 IH; +AMIO200T6 PO; +APIX5TAB PO; +ATOR40TA PO; +AZIT500T4 PO; +DIGO125T3 PO; +FLUO20CA20 PO; +GABA100C6 PO; +GLIM2TAB PO; +GUAI600T47 PO; +ISOS20TA2 PO; +LORA10TA3 PO; +MAGN200T7 PO; +MAGN400O7 PO; +MECL12.574 PO; +MULT-766 PO; +POTA-163 PO; +POTA10TA12 PO; +POTA20TA4 PO; +SENN1TAB62 PO
[2020-08-26] MEDS ORDERED: ACETAMINOPHEN 650 MG SUPP.RECT. PR PRN (16:15)
[2020-08-26] MEDS ORDERED: BISACODYL 10 MG SUPP.RECT. PR PRN (16:15)
[2020-08-26] MEDS ORDERED: MORPHINE SULFATE 30 ML IV PRN (16:15)
[2020-08-26] MEDS ORDERED: IV NORMAL SALINE 1000ML BAG 1,000 ML IV SCH (16:30)
--- NOTE | 2020-08-26 17:58 | NUR ---
nursing note pt passed at the end of the shift. Dr. Justin, nursing supervisor functional testing, and family were called. pt was transferred down to the [facility] [place]
[2020-08-27] MEDS ORDERED: SCOPOLAMINE 1.5MG PATCH. TD SCH (09:00)
== END 2020-08-26 17:58 | DRG 177 ==
LOC: 2 SOUTH 16:07
PROVIDERS: ADMIT Family Medicine; ATTEND Family Medicine
DX: U07.1 COVID-19 (principal); J96.01 Acute respiratory failure with hypoxia; J12.89 Other viral pneumonia; N17.9 Acute kidney failure, unspecified; J44.0 Chronic obstructive pulmonary disease with (acute) lower respiratory infection; G93.40 Encephalopathy, unspecified; I25.10 Atherosclerotic heart disease of native coronary artery without angina pectoris; I50.9 Heart failure, unspecified; E78.5 Hyperlipidemia, unspecified; Z66 Do not resuscitate; Z51.5 Encounter for palliative care; I10 Essential (primary) hypertension; Z85.828 Personal history of other malignant neoplasm of skin; I25.2 Old myocardial infarction; Z85.038 Personal history of other malignant neoplasm of large intestine; Z90.49 Acquired absence of other specified parts of digestive tract; Z95.1 Presence of aortocoronary bypass graft; Z95.0 Presence of cardiac pacemaker; Z95.5 Presence of coronary angioplasty implant and graft; Z87.891 Personal history of nicotine dependence
CPT/HCPCS: J2270; J7030; G0378